=== PATIENT | female | born 1960 | race Caucasian/White ===

== ENCOUNTER 2022-02-08 12:17 | Inpatient (IN) | payer MEDICARE, MEDICAID ==
[~2022-02-08] VITALS: Ht 165.1 cm; Wt 54.4 kg
[2022-02-08 13:25] LABS: CHLORIDE 111 mEq/L (98-107)
[2022-02-08 13:30] LABS: BASOPHILS % 0.5 % (0.0-2.0); EOSINOPHILS % 0.6 % (0.0-5.0); HEMATOCRIT. 27.7 % (36.0-48.0); HEMOGLOBIN. 8.9 g/dL (12.0-16.0); LYMPHOCYTES % 28.1 % (20.0-50.0); MEAN CORPUSCULAR HEMOGLOBIN 26.5 pg (28.0-32.0); MEAN CORPUSCULAR VOLUME 82.8 fL (81.0-99.0); MEAN PLATELET VOLUME 7.8 fl (7.4-10.4); MONOCYTES % 8.2 % (2.0-8.0); NEUTROPHILS % 62.6 % (40.0-76.0); PLATELET 244 x1000/uL (130-400); RED BLOOD CELL COUNT 3.35 mill/uL (4.2-5.4); RED CELL DISTRIBUTION WIDTH 24.6 % (11.6-14.6)
[2022-02-08] MEDS ORDERED: SODIUM CHLORIDE 0.9% 1,000 ML IV ONE (13:30)
[2022-02-08 13:34] LABS: INR 1.1
[2022-02-08 14:29] LABS: PLATELET ESTIMATE NORMAL
[2022-02-08 19:35] LABS: CLARITY URINE CLOUDY (CLEAR); COLOR URINE YELLOW (YELLOW); KETONES URINE NEGATIVE (NEGATIVE); LEUKOCYTE ESTERASE URINE 2+ (NEGATIVE); NITRITE URINE POSITIVE (NEGATIVE); OCCULT BLOOD URINE NEGATIVE (NEGATIVE); PROTEIN URINE TRACE (NEGATIVE); SPECIFIC GRAVITY URINE 1.015 (1.005-1.030)
[2022-02-08 20:45] VITALS: BP 136/90
[2022-02-09] MEDS: DEXT 5%/0.9% NACL 1,000 ML IV SCH (02:30)
[2022-02-09 04:00] VITALS: BP 140/89
[2022-02-09] MEDS: CEFTRIAXONE 1,000 MG in DEXTROSE 5% WATER 50 ML IV SCH (06:13)
[2022-02-09 08:00] VITALS: BP 123/89
[2022-02-09] MEDS ORDERED: CEFTRIAXONE 1 G PREMIX 50 ML IV SCH (08:00)
[2022-02-09 08:46] LABS: BASOPHILS % 0.3 % (0.0-2.0); EOSINOPHILS % 0.5 % (0.0-5.0); HEMOGLOBIN. 7.7 g/dL (12.0-16.0); LYMPHOCYTES % 20.1 % (20.0-50.0); MEAN CORPUSCULAR VOLUME 84.4 fL (81.0-99.0); MEAN PLATELET VOLUME 7.2 fl (7.4-10.4); MONOCYTES % 7.9 % (2.0-8.0); NEUTROPHILS % 71.2 % (40.0-76.0); PLATELET 191 x1000/uL (130-400); RED BLOOD CELL COUNT 2.85 mill/uL (4.2-5.4); RED CELL DISTRIBUTION WIDTH 24.5 % (11.6-14.6)
[2022-02-09 08:54] LABS: CHLORIDE 118 mEq/L (98-107)
[2022-02-09] MEDS ORDERED: ENOXAPARIN 40MG/0.4ML SYR SUBCUT SCH (09:00)
[2022-02-09] MEDS: PANTOPRAZOLE SODIUM 40 MG/VIAL IV SCH (09:25)
[2022-02-09] MEDS ORDERED: POTASSIUM CHLORIDE 20MEQ TABLET SR PO NR ×2 (10:00→11:15)
[2022-02-09 11:54] LABS: TOTAL IRON BINDING CAPACITY 224 ug/dL (250-450)
[2022-02-09 12:00] VITALS: BP 146/92
[2022-02-09 12:26] LABS: FERRITIN 868 ng/mL (10-291)
[2022-02-09 12:27] LABS: FOLIC ACID (FOLATE) SERUM >20 ng/mL ng/mL (>5.38); VITAMIN B12 SERUM 1447 pg/mL (211-911)
[2022-02-09 16:00] VITALS: BP 137/86
[2022-02-09 20:00] VITALS: BP 167/89
[2022-02-10] VITALS (12 sets, daily range): BP systolic 119–157; BP diastolic 78–101
[2022-02-10] MEDS: DEXT 5%/0.9% NACL 1,000 ML IV SCH (04:10)
[2022-02-10] MEDS: CEFTRIAXONE 1,000 MG in DEXTROSE 5% WATER 50 ML IV SCH (04:26)
[2022-02-10] MEDS ORDERED: ACETAMINOPHEN 650MG/20.3ML UDC GT PRN (04:30)
[2022-02-10 08:27] LABS: BASOPHILS % 0.2 % (0.0-2.0); EOSINOPHILS % 0.5 % (0.0-5.0); HEMATOCRIT. 23.2 % (36.0-48.0); HEMOGLOBIN. 7.5 g/dL (12.0-16.0); MEAN CORPUSCULAR HEMOGLOBIN 27.2 pg (28.0-32.0); MEAN CORPUSCULAR VOLUME 84.4 fL (81.0-99.0); MEAN PLATELET VOLUME 7.6 fl (7.4-10.4); MONOCYTES % 6.9 % (2.0-8.0); NEUTROPHILS % 68.4 % (40.0-76.0); PLATELET 202 x1000/uL (130-400); RED BLOOD CELL COUNT 2.75 mill/uL (4.2-5.4); RED CELL DISTRIBUTION WIDTH 24.7 % (11.6-14.6)
[2022-02-10 08:34] LABS: CHLORIDE 123 mEq/L (98-107)
[2022-02-10] MEDS: PANTOPRAZOLE SODIUM 40 MG/VIAL IV SCH (08:49)
[2022-02-10] MEDS ORDERED: NALOXONE HCL 0.4MG/ML VIAL IV PRN (11:15)
[2022-02-10] MEDS: HYDROCODONE/ACETAMINOPHEN 5/325MG TABLET GT PRN ×2 (13:52→22:47)
[2022-02-10] MEDS: CLONIDINE 0.1MG TABLET PO PRN ×2 (13:52→17:36)
[2022-02-11] VITALS: BP 141/87
[2022-02-11 04:00] VITALS: BP 151/99
[2022-02-11] MEDS: CEFTRIAXONE 1,000 MG in DEXTROSE 5% WATER 50 ML IV SCH (06:23)
[2022-02-11] MEDS: HYDROCODONE/ACETAMINOPHEN 5/325MG TABLET GT PRN ×2 (06:29→15:00)
[2022-02-11 08:00] VITALS: BP 123/84
[2022-02-11] MEDS: PANTOPRAZOLE SODIUM 40 MG/VIAL IV SCH (08:53)
[2022-02-11 12:00] VITALS: BP 159/89
[2022-02-11 13:32] LABS: CHLORIDE 121 mEq/L (98-107)
[2022-02-11] MEDS: CLONIDINE 0.1MG TABLET PO PRN (15:00)
[2022-02-11 16:27] VITALS: BP 141/91
[2022-02-11 16:54] VITALS: BP 123/84
== END 2022-02-11 18:23 | DRG 811 ==
LOC: ER 12:17 → 6EST 17:25 → EDBEDREQ 17:27 → ENRESERV 19:29
PROVIDERS: ADMIT Internal Medicine; ATTEND Internal Medicine
PROC: 30233N1 Transfusion of Nonautologous Red Blood Cells into Peripheral Vein, Percutaneous Approach (ICD-10-PCS; principal; 2022-02-10)
DX: D50.9 Iron deficiency anemia, unspecified (principal); G82.50 Quadriplegia, unspecified; G93.41 Metabolic encephalopathy; N39.0 Urinary tract infection, site not specified; E44.1 Mild protein-calorie malnutrition; E87.0 Hyperosmolality and hypernatremia; I69.351 Hemiplegia and hemiparesis following cerebral infarction affecting right dominant side; D57.1 Sickle-cell disease without crisis; E86.0 Dehydration; K57.90 Diverticulosis of intestine, part unspecified, without perforation or abscess without bleeding; I25.10 Atherosclerotic heart disease of native coronary artery without angina pectoris; I10 Essential (primary) hypertension; R13.12 Dysphagia, oropharyngeal phase; L89.159 Pressure ulcer of sacral region, unspecified stage; K21.9 Gastro-esophageal reflux disease without esophagitis; E86.1 Hypovolemia; R25.2 Cramp and spasm; Z66 Do not resuscitate; Z68.20 Body mass index [BMI] 20.0-20.9, adult; Z88.8 Allergy status to other drugs, medicaments and biological substances; Z90.49 Acquired absence of other specified parts of digestive tract; I69.320 Aphasia following cerebral infarction; Z51.5 Encounter for palliative care; Z87.440 Personal history of urinary (tract) infections
CPT/HCPCS: 36415; 71045; 74176; 76700; 80048; 80053; 81003; 82270; 82607; 82728; 82746; 83540; 83550; 85025; 85044; 86850; 86870; 86880; 86900; 86920; 93005; 99285; C9113; J0696; J1650; J7030; J7042; J7060; P9016

== ENCOUNTER 2022-06-08 18:56 | Emergency (ER) | payer MEDICARE, MEDICAID ==
[~2022-06-08] VITALS: Ht 177.8 cm; Wt 91.0 kg
[2022-06-08] MEDS ORDERED: DEXT 5%/LACTATED RINGERS 1,000 ML IV ONE (22:15)
[2022-06-08] MEDS ORDERED: DIATR MEGLU/DIATRIZOATE SOLN 30ML ONE (22:27)
[2022-06-09 09:37] VITALS: BP 114/79
== END 2022-06-09 11:33 | disposition home or self-care (01) ==
LOC: ER 18:56
DX: Z93.1 Gastrostomy status (principal); Z88.8 Allergy status to other drugs, medicaments and biological substances; Z86.73 Personal history of transient ischemic attack (TIA), and cerebral infarction without residual deficits; Z98.890 Other specified postprocedural states
CPT/HCPCS: 74018; 82962; 99283; J7121; Q9963